=== PATIENT | male | born 1990 | race Caucasian/White ===

== ENCOUNTER 2021-01-05 09:03 | Emergency (ER) | payer BC ==
[2021-01-05] MEDS ORDERED: Dexamethasone 10 MG/ML SDV IM ONE (09:20)
--- NOTE | 2021-01-05 09:25 | EDM.PDOC ---
ED HPI GENERAL MEDICAL PROBLEM - General Chief Complaint: ENT Problem Stated Complaint: SORE THROAT Time Seen by Provider: 01/05/21 09:10 Source of Information: Reports: Patient History Limitations: Reports: No Limitations - History of Present Illness INITIAL COMMENTS - FREE TEXT/NARRATIVE: Patient is a 30-year-old male who presents today for throat pain for the past 2 to 3 days. Patient states is difficult to eat but is able to breathe and swallow saliva without issue. Patient was also problem talking. Patient has any fever chills nausea vomiting diarrhea or other issues. throat Pain Score (Numeric/FACES): 8 bodyaches Pain Score (Numeric/FACES): 5 - Related Data Allergies Allergy/AdvReac Type Severity Reaction Status Date / Time No Known Allergies Allergy Verified 01/05/21 09:26 Home Meds: Home Meds . [No Known Home Meds] 01/05/21 [History] ED ROS ENT - Review of Systems Review Of Systems: See Below Constitutional: Reports: No Symptoms HEENT: Reports: Throat Pain Respiratory: Reports: No Symptoms Endocrine: Reports: No Symptoms GI/Abdominal: Reports: No Symptoms : Reports: No Symptoms Musculoskeletal: Reports: No Symptoms Skin: Reports: No Symptoms Neurological: Reports: No Symptoms Psychiatric: Reports: No Symptoms Hematologic/Lymphatic: Reports: No Symptoms Immunologic: Reports: No Symptoms ED EXAM, ENT - Physical Exam Exam: See Below Exam Limited By: No Limitations General Appearance: Alert, WD/WN Nose: Normal Inspection Mouth/Throat: Normal Inspection, Tonsillar Exudates, Tonsillar Swelling. No: Uvular Deviation Head: Atraumatic Respiratory/Chest: No Respiratory Distress Neurological: Alert, Oriented, Normal Cognition, Normal Gait Course - Vital Signs Last Recorded V/S: Last Vital Signs Temp 97.2 F 01/05/21 09:14 Pulse 104 H 01/05/21 09:14 Resp 17 01/05/21 09:14 BP 127/76 01/05/21 09:14 Pulse Ox 95 01/05/21 09:14 - Orders/Labs/Meds Labs: Laboratory Tests 01/05/21 Range/Units 09:16 Group A Strep (PCR) NOT DETECTED (NOT DETECT) Meds: Medications Discontinued Medications Generic Name Dose Route Start Last Admin Trade Name Freq PRN Reason Stop Dose Admin Dexamethasone 10 mg 01/05/21 09:20 01/05/21 09:30 Dexamethasone 10 Mg/Ml Sdv IM 01/05/21 09:21 10 mg ONETIME ONE Administration - Re-Assessments/Exams Free Text/Narrative Re-Assessment/Exam: 01/05/21 09:55 Patient rapid strep test is negative. Patient was given Decadron. Patient was told that if he culture come back positive we will call in antibiotics at this time patient she continue to stay hydrated and take Motrin Tylenol as needed. Departure - Departure Time of Disposition: 09:56 Disposition: Home, Self-Care 01 Condition: Good Clinical Impression: Viral pharyngitis - Discharge Information *PRESCRIPTION DRUG MONITORING PROGRAM REVIEWED*: Not Applicable *COPY OF PRESCRIPTION DRUG MONITORING REPORT IN PATIENT RENAY: Not Applicable Instructions: Pharyngitis, [id number] Referrals: PCP,None [Primary Care Provider] - Forms: ED Department Discharge Additional Instructions: The following information is given to patients seen in the emergency department who are being discharged to home. This information is to outline your options for follow-up care. We provide all patients seen in our emergency department with a follow-up referral. The need for follow-up, as well as the timing and circumstances, are variable depending upon the specifics of your emergency department visit. If you don't have a primary care physician on staff, we will provide you with a referral. We always advise you to contact your personal physician following an emergency department visit to inform them of the circumstance of the visit and for follow-up with them and/or the need for any referrals to a consulting specialist. The emergency department will also refer you to a specialist when appropriate. This referral assures that you have the opportunity for follow-up care with a specialist. All of these measure are taken in an effort to provide you with optimal care, which includes your follow-up. Under all circumstances we always encourage you to contact your private physician who remains a resource for coordinating your care. When calling for follow-up care, please make the office aware that this follow-up is from your recent emergency room visit. If for any reason you are refused follow-up, please contact the Emergency Department at and asked to speak to the emergency department charge nurse. Please follow up with your primary care physician. If you do not have a primary care physician, see below: [facility] [address] [place] [place], [place] [id number] [facility] [address] [place], [place] [id number] You are seen today for throat pain. We did a rapid strep test that came back negative. We will also send a culture to confirm this result. We gave you some steroids that she about the pain and swelling in your throat. We recommend you continue to take [id number] medication as needed for your symptoms. If you have any increased pain difficulty swallowing or breathing please return to the ED. Sepsis Event Note (ED) - Focused Exam Vital Signs: Vital Signs Temp Pulse Resp BP Pulse Ox 01/05/21 09:14 97.2 F 104 H 17 127/76 95 - Assessment/Plan Plan: Patient is a 30-year-old male presents today for throat pain. Patient has some tonsillar swelling exudate on exam. Patient will be given Decadron and had rapid strep.
== END 2021-01-05 10:22 | disposition home or self-care (01) ==
LOC: MW.ED 09:03
DX: J02.8 Acute pharyngitis due to other specified organisms (principal)
CPT/HCPCS: 87651; 96372; 99283; J1100; 99282

== ENCOUNTER 2023-07-17 09:05 | Emergency (ER) | payer BC ==
[2023-07-17] MEDS ORDERED: Tetracaine HCl/PF 0.5% 4 ML Bottle EYERT ONE (09:42)
== END 2023-07-17 11:00 | disposition left against medical advice (07) ==
LOC: MW.ED 09:05
DX: T15.91XA Foreign body on external eye, part unspecified, right eye, initial encounter (principal); W45.8XXA Other foreign body or object entering through skin, initial encounter
CPT/HCPCS: 99282; 99283; J3490

== ENCOUNTER 2024-03-18 08:16 | Emergency (ER) | payer SELFPAY ==
[2024-03-18] MEDS: Sodium Chloride 0.9% 1,000 ML IV STA (08:39)
[2024-03-18] MEDS: droPERidol 5 MG/2 ML SDV IVPUSH ONE (08:42)
[2024-03-18] MEDS: Sodium Chloride 0.9% 10 ML Syringe FLUSH PRN (08:43)
[2024-03-18] MEDS: Sodium Chloride 0.9% 2.5 ML Syringe FLUSH PRN (08:43)
[2024-03-18 08:44] LABS: BASOPHILS ABSOLUTE AUTO 0.08 K/uL (0.00-0.20); BASOPHILS PERCENT AUTO 0.6 % (0.0-1.0); EOSINOPHILS PERCENT AUTO 1.5 % (0.0-6.0); HEMATOCRIT 50.5 % (42.0-52.0); IMMATURE GRAN ABSOLUTE AUTO 0.04 K/uL (0.00-0.05); IMMATURE GRAN PERCENT AUTO 0.3 % (0.0-0.4); LYMPHOCYTES ABSOLUTE AUTO 3.64 K/uL (1.00-4.80); LYMPHOCYTES PERCENT AUTO 27.2 % (24.0-44.0); MEAN CORPUSCULAR HGB CONC 35.6 g/dL (32.0-36.0); MEAN CORPUSCULAR VOLUME 86.9 fL (83.0-99.0); MEAN PLATELET VOLUME 10.6 fL (9.4-12.4); MONOCYTES ABSOLUTE AUTO 1.02 K/uL (0.00-0.80); MONOCYTES PERCENT AUTO 7.6 % (0.0-8.0); NEUTROPHILS ABSOLUTE AUTO 8.41 K/uL (1.80-7.70); NEUTROPHILS PERCENT AUTO 62.8 % (41.0-71.0); PLATELET COUNT,PLT 274 K/uL (150-400); RED BLOOD CELL COUNT 5.81 M/uL (4.52-5.90); WHITE BLOOD CELL COUNT,WBC 13.39 K/uL (3.9-11.3)
[2024-03-18 09:08] LABS: A/G RATIO 1.3 (0.9-1.6); ALANINE AMINOTRANSFERASE,ALT 45 IU/L (14-63); ALBUMIN 4.3 g/dL (3.4-5.0); ALKALINE PHOSPHATASE 59 U/L (46-116); ASPARTATE AMNIOTRANSFERASE,AST 33 IU/L (15-37); BILIRUBIN TOTAL 0.5 mg/dL (0.2-1.0); BLOOD UREA NITROGEN,BUN 12 mg/dL (7.0-18.0); CALCIUM 9.9 mg/dL (8.5-10.1); CARBON DIOXIDE,CO2 23.9 mmol/L (21.0-32.0); CHLORIDE,CL 102 mmol/L (98-107); CREATININE 1.4 mg/dL (0.8-1.3); EST CRCL DRUG DOSING (CG) 80.68 mL/min; ETHANOL BLOOD MEDICAL <3 mg/dL; GLUCOSE RANDOM 131 mg/dL (74-106); LIPASE 48 U/L (16-77); POTASSIUM,K 5.1 mmol/L (3.5-5.1); PROTEIN TOTAL,TP 7.6 g/dL (6.4-8.2); SODIUM,NA 137 mmol/L (136-148)
[2024-03-18 09:09] LABS: ESTIMATED GFR 68 mL/min (>60)
== END 2024-03-18 09:50 | disposition home or self-care (01) ==
LOC: MW.ED 08:16
DX: R11.2 Nausea with vomiting, unspecified (principal); Z75.8 Other problems related to medical facilities and other health care
CPT/HCPCS: 80053; 80307; 83690; 85025; 96361; 96374; 99284; J1790; J3490; J7030